=== PATIENT | female | born 2000 | race African-American/Black ===

== ENCOUNTER 2020-02-27 13:34 | Emergency (ER) | payer OTHER, SELFPAY ==
[2020-02-27] MEDS ORDERED: Ketorolac Tromethamine 30 MG/ML VIAL ONE (14:34)
== END 2020-02-27 15:08 | disposition home or self-care (01) ==
LOC: ERS 13:34
DX: N94.6 Dysmenorrhea, unspecified (principal)
CPT/HCPCS: 96372; 99283; J1885

== ENCOUNTER 2022-07-18 22:05 | Emergency (ER) | payer SELFPAY | END 2022-07-18 23:37 | disposition home or self-care (01) | LOC: ERS 22:05 | DX: J02.9 Acute pharyngitis, unspecified (principal) | CPT/HCPCS: 87081; 87430; 99283 ==